=== PATIENT | female | born 1965 | race Caucasian/White ===

== ENCOUNTER 2021-08-07 08:08 | Inpatient (IN) | payer OTHER ==
[~2021-08-07] VITALS: Ht 170.2 cm; Wt 96.8 kg
[2021-08-07] MEDS ORDERED: NORT25CA3 PO (08:49)
[2021-08-07] MEDS ORDERED: LEVO137T2 PO (08:49)
[2021-08-07] MEDS ORDERED: NALD0.2T3 PO (08:49)
[2021-08-07] MEDS ORDERED: METH10 PO (08:49)
[2021-08-07] MEDS ORDERED: ALPR0.5T8 PO (08:49)
[2021-08-07] MEDS ORDERED: MACR100 PO (08:49)
[2021-08-07] MEDS ORDERED: CEPH500C2 PO (08:49)
[2021-08-07] MEDS ORDERED: CARB100C9 PO (08:49)
[2021-08-07] MEDS ORDERED: TOLT2CAP21 PO (08:49)
[2021-08-07] MEDS ORDERED: MIRT-92 PO (08:49)
[2021-08-07] MEDS ORDERED: HYDR-4061 PO (08:49)
[2021-08-07] MEDS ORDERED: PHEN-947 PO (08:49)
[2021-08-07] MEDS ORDERED: AMLO10TA55 PO (08:49)
[2021-08-07] MEDS ORDERED: SERT-440 PO (08:49)
[2021-08-07] MEDS ORDERED: DIAZ5TAB4 PO (08:49)
[2021-08-07] MEDS ORDERED: PANT20TA18 PO (08:49)
[2021-08-07] MEDS ORDERED: LORazepam 2 MG TABLET PO ONE (09:00)
[2021-08-07] MEDS ORDERED: HALOPERIDOL 5 MG TABLET PO ONE (09:00)
[2021-08-07 09:26] LABS: BASOPHILS % (AUTO) 0.8 % (0.0-2.0); EOSINOPHILS % (AUTO) 0.4 % (1.0-6.0); HEMATOCRIT 41.9 % (36-46); HEMOGLOBIN 14.3 g/dL (12.0-16.0); LYMPHOCYTES # (AUTO) 1.3 K/uL (1.0-4.8); LYMPHOCYTES % (AUTO) 17.7 % (22.0-44.0); MEAN CORPUSCULAR HEMOGLOBIN 29.6 pg (26.0-34.0); MEAN CORPUSCULAR HGB CONC 34.1 G/dL (31.0-37.0); MEAN CORPUSCULAR VOLUME 87 fL (80-100); MONOCYTES # (AUTO) 0.4 K/uL (0.1-1.0); MONOCYTES % (AUTO) 5.4 % (2.0-9.0); NEUTROPHILS # (AUTO) 5.4 K/uL (1.8-7.7); NEUTROPHILS % (AUTO) 75.7 % (40.0-70.0); PLATELET COUNT (AUTO) 260 K/uL (150-450); RED BLOOD CELL COUNT(AUTO) 4.82 MIL/uL (4.00-5.20); RED CELL DISTRIBUTION WIDTH 13.5 % (11.5-14.5)
[2021-08-07 09:26] LABS: COVID AG,FIA SOURCE NASOPHARYNGEAL
[2021-08-07 09:36] LABS: ANION GAP 11 mmol/L (8-16); CALCIUM, TOTAL 9.2 mg/dL (8.8-10.5); CARBON DIOXIDE 27 mmol/L (22-29); CHLORIDE 102 mmol/L (98-107); CREATININE 0.65 mg/dL (0.60-1.30); GLOMERULAR FILTR. RATE CALC > 60 mL/min (>60); GLUCOSE,RANDOM 114 mg/dL (70-110); POTASSIUM 3.7 mmol/L (3.5-5.1); SODIUM SERUM 140 mmol/L (136-145); UREA NITROGEN, BLOOD 9 mg/dL (7-18)
[2021-08-07 09:41] LABS: AMPHET/METH SCREEN,URINE NEGATIVE (NEGATIVE); BARBITURATE SCREEN, URINE NEGATIVE (NEGATIVE); BENZODIAZEPINES SCREEN,URINE NEGATIVE (NEGATIVE); CANNABINOID SCREEN,URINE NEGATIVE (NEGATIVE); COCAINE SCREEN,URINE NEGATIVE (NEGATIVE); METHADONE SCREEN, URINE NEGATIVE (NEGATIVE); OPIATE SCREEN,URINE POSITIVE (NEGATIVE); PHENCYCLIDINE SCREEN,URINE NEGATIVE (NEGATIVE)
[2021-08-07 09:41] LABS: ALANINE AMINOTRANSFERASE 45 U/L (12-78); ALBUMIN 4.5 g/dL (3.4-5.0); ALKALINE PHOSPHATASE 69 U/L (46-116); ASPARTATE AMINOTRANSFERASE 21 U/L (15-37); BILIRUBIN,TOTAL 0.4 mg/dL (0.1-1.0); CARBAMAZEPINE (TEGRETOL) 0.7 mcg/mL (4.0-12.0); TOTAL PROTEIN, SERUM 7.9 g/dL (6.4-8.2)
[2021-08-07] MEDS ORDERED: HydrOXYzine PAMOATE 50 MG CAPSULE PO ONE (10:45)
[2021-08-07] MEDS ORDERED: HALOPERIDOL 5 MG TABLET PO PRN (11:30)
[2021-08-07] MEDS ORDERED: ZOLPIDEM TARTRATE 10 MG TABLET PO PRN (11:30)
[2021-08-07 12:20] LABS: APPEARANCE,URINE CLEAR (CLEAR); BILIRUBIN,URINE NEGATIVE (NEGATIVE); GLUCOSE, URINE (UA) NEGATIVE (NEGATIVE); KETONES,URINE NEGATIVE (NEGATIVE); LEUKOCYTE ESTERASE ,URINE NEGATIVE (NEGATIVE); NITRATE,URINE NEGATIVE (NEGATIVE); OCCULT BLOOD,URINE NEGATIVE (NEGATIVE); PROTEIN,URINE NEGATIVE (NEGATIVE); UROBILINOGEN,URINE 0.2 mg/dL (<=1.0)
[2021-08-07] MEDS ORDERED: DiphenhydrAMINE HCL 50 MG/ML VIAL ONE (12:53)
[2021-08-07] MEDS ORDERED: LORazepam 2 MG/ML VIAL ONE (12:53)
[2021-08-07] MEDS ORDERED: HALOPERIDOL LACTATE 5 MG/ML VIAL ONE (12:53)
[2021-08-07] MEDS ORDERED: HALOPERIDOL LACTATE 5 MG/ML VIAL IM ONE (13:00)
[2021-08-07] MEDS ORDERED: DiphenhydrAMINE HCL 50 MG/ML VIAL IM ONE (13:00)
[2021-08-07] MEDS ORDERED: LORazepam 2 MG/ML VIAL IM ONE (13:00)
[2021-08-07 13:17] VITALS: BP 139/106
[2021-08-07 16:04] VITALS: BP 99/63
[2021-08-07] MEDS ORDERED: PNEUMOCOCCAL VACCINE POLYVALENT 0.5 ML VIAL [PPSV23] IM. ONE (21:45)
[2021-08-08 02:05] LABS: CHOL/HDL RATIO 7.4 (3.9-5.7); CHOLESTEROL 304 mg/dL (131-200); FREE T4 (FREE THYROXINE) 0.76 ng/dL (0.76-1.46); HDL CHOLESTEROL 41 mg/dL (40-60); LDL CHOL (CALC.) 219 mg/dL (0-130); THYROID STIMULATING HORMONE 3.23 uIU/mL (0.36-3.74); TRIGLYCERIDES 221 mg/dL (15-150)
[2021-08-08 05:53] VITALS: BP 139/73
[2021-08-08] MEDS: LORazepam 2 MG TABLET PO PRN ×2 (07:21→11:42)
[2021-08-08] MEDS: ATENOLOL 100 MG TABLET PO SCH (08:08)
[2021-08-08] MEDS: SERTRALINE HCL 100 MG TABLET PO SCH (08:09)
[2021-08-08 08:22] VITALS: BP 148/99
[2021-08-08] MEDS ORDERED: CarBAMazepine 100 MG CHEWABLE TABLET PO SCH (09:00)
[2021-08-08] MEDS ORDERED: AmLODIPine BESYLATE 10 MG TABLET PO SCH (09:00)
[2021-08-08] MEDS ORDERED: ACETAMINOPHEN 325 MG TABLET PO PRN ×2 (10:30→16:30)
[2021-08-08] MEDS ORDERED: IBUPROFEN 600 MG TABLET PO PRN ×2 (10:30→16:30)
[2021-08-08] MEDS: CarBAMazepine 200 MG TABLET PO SCH ×2 (11:45→16:03)
[2021-08-08] MEDS: METHADONE HCL 10 MG TABLET PO SCH (16:03)
[2021-08-08 16:05] VITALS: BP 105/62
[2021-08-08] MEDS ORDERED: DOCUSATE SODIUM 100 MG CAPSULE PO PRN (16:30)
[2021-08-08] MEDS ORDERED: PETROLATUM,WHITE 28 GM JELLY TP PRN (16:30)
[2021-08-08] MEDS ORDERED: BACITRACIN 28 GM OINTMENT TP PRN (16:30)
[2021-08-08] MEDS ORDERED: MAGNESIUM HYDROXIDE SUSPENSION 30 ML UDCUP PO PRN (16:30)
[2021-08-08] MEDS ORDERED: CloNIDine HCL 0.1 MG TABLET PO PRN (16:30)
[2021-08-08] MEDS ORDERED: ONDANSETRON HCL 4 MG TABLET PO PRN (16:30)
[2021-08-08] MEDS ORDERED: MAG HYDROX/AL HYDROX/SIMETH ES 30 ML SUSPENSION UDCUP PO PRN (16:30)
[2021-08-08] MEDS ORDERED: BENZOCAINE/MENTHOL LOZENGE PO PRN (16:30)
[2021-08-08] MEDS ORDERED: LOPERAMIDE HCL 2 MG CAPSULE PO PRN (16:30)
[2021-08-08] MEDS ORDERED: ALBUTEROL SULFATE HFA 90 MCG/PUFF 8 GM INHALER IH PRN (16:30)
[2021-08-08] MEDS ORDERED: OMEPRAZOLE 20 MG CAPSULE PO PRN (16:30)
[2021-08-09] MEDS: LORazepam 2 MG TABLET PO PRN ×2 (05:25→09:49)
[2021-08-09 05:28] VITALS: BP 105/73
[2021-08-09] MEDS ORDERED: LEVOTHYROXINE SODIUM 137 MCG TABLET PO SCH (06:30)
[2021-08-09 08:11] VITALS: BP 121/69
[2021-08-09] MEDS ORDERED: TOLTERODINE TARTRATE 2 MG ER CAPSULE PO SCH (09:00)
[2021-08-09] MEDS ORDERED: AmLODIPine BESYLATE 10 MG TABLET PO SCH (09:00)
[2021-08-09] MEDS: SERTRALINE HCL 100 MG TABLET PO SCH (09:50)
[2021-08-09] MEDS: ATENOLOL 100 MG TABLET PO SCH (09:50)
[2021-08-09] MEDS: METHADONE HCL 10 MG TABLET PO SCH (09:50)
[2021-08-09] MEDS: CarBAMazepine 200 MG TABLET PO SCH (09:51)
[2021-08-09] MEDS ORDERED: CETIRIZINE HCL 10 MG TABLET PO SCH (10:00)
[2021-08-09] MEDS ORDERED: AMLO-258 PO (12:00)
[2021-08-09] MEDS ORDERED: TOLT2CAP PO (12:01)
[2021-08-09] MEDS ORDERED: CARB100 PO (12:01)
[2021-08-09] MEDS ORDERED: ATEN100T92 PO (12:02)
== END 2021-08-09 13:00 | disposition home or self-care (01) | DRG 881 ==
LOC: EMS 08:10 → B3A 11:32
PROVIDERS: ADMIT Psychiatry & Neurology Psychiatry; ATTEND Psychiatry & Neurology Psychiatry
DX: F32.9 Major depressive disorder, single episode, unspecified (principal); R45.851 Suicidal ideations; F41.9 Anxiety disorder, unspecified; I10 Essential (primary) hypertension; G47.00 Insomnia, unspecified; K59.00 Constipation, unspecified; F17.210 Nicotine dependence, cigarettes, uncomplicated; F19.10 Other psychoactive substance abuse, uncomplicated; Z79.899 Other long term (current) drug therapy; Z20.822 Contact with and (suspected) exposure to COVID-19
CPT/HCPCS: 80053; 80061; 80156; 81003; 84439; 84443; 85025; 99285; G0480; J1200; J1630; J2060